=== PATIENT | male | born 1945 | race Caucasian/White ===

== ENCOUNTER 2016-04-22 10:52 | Inpatient (IN) | payer BC ==
[~2016-04-22] VITALS: Ht 170.2 cm; Wt 85.6 kg
[~2016-04-22 10:52] MED LIST: Aspirin E.C. PO; Bactrim,Septra DS 80 PO; FEOSOL325 MG PO; LEUKERAN2 MG PO; Martinic PO; Move Free Advanced T PO; THERAGRAN1 TABLET PO; VITAMIN D1000 INTUN PO; Vicodin,Lortab 5/500 PO
[2016-04-22 12:32] LABS: CHLORIDE 105 mEq/L (99-109); POTASSIUM 3.9 mEq/L (3.7-5.4); SODIUM 137 mEq/L (136-147)
[2016-04-22 12:34] LABS: GLUCOSE 156 mg/dL (70-99)
[2016-04-22 12:36] LABS: ANION GAP 12 MEQ/L (2-14)
[2016-04-22 12:38] LABS: ALKALINE PHOSPHATASE 86 IU/L (3-129); GFR ESTIMATE (CALCULATED) 45 mL/min/
[2016-04-22 12:39] LABS: UREA NITROGEN (BUN) 48 mg/dL (9-23)
[2016-04-22 12:40] LABS: EOSINOPHIL (%) 2.4 % (0-5); HEMATOCRIT 23.6 % (38.0-50.0); IMMATURE GRANULOCYTE (%) 3.5 % (0.0-0.7); IMMATURE GRANULOCYTE COUNT 0.3 K/uL; LYMPHOCYTE COUNT 0.2 K/uL (1.0-2.8); MCH 33.5 PG (29.0-34.0); MCHC 35.2 G/DL (30.0-36.0); MCV 95.2 FL (86-99); MONOCYTE (%) 2.4 % (3-12); NEUTROPHIL (%) 71.7 % (45-76); NEUTROPHIL COUNT 0.6 K/uL (1.8-6.4); RBC DIS.WIDTH-CV 18.3 % (11.8-14.6); RBC DIS.WIDTH-SD 60.2 % (39-53); RED BLOOD COUNT 2.48 M/uL (4.00-5.50)
[2016-04-22 12:41] LABS: WHITE BLOOD COUNT 0.9 K/uL (4.1-10.2)
[2016-04-22 13:15] LABS: MEAN PLAT.VOLUME 9.2 uM^3 (9.0-12.4); PLATELET COUNT 49 K/uL (156-360)
[2016-04-22 14:02] LABS: HEMATOLOGY COMMENT 1 SMEAR COMPATIBLE; PLAT.SUFFICIENCY DECREASED; USER ID TLW
[2016-04-22 14:14] LABS: ADD MIUA? NO; BILIRUBIN NEGATIVE; BLOOD NEGATIVE; COLOR YELLOW ((YELLOW)); GLUCOSE (STRIP) NEGATIVE; KETONES NEGATIVE; LEUKOCYTES NEGATIVE; NITRITE NEGATIVE; PROTEIN (STRIP) NEGATIVE; SPECIFIC GRAVITY 1.008 (1.000-1.030); UCUL ADDED? NO; UROBILINOGEN 0.2 MG/DL (0.2-1.0)
[2016-04-22] MEDS ORDERED: LO-DOSE ASPIRIN81 M2 PO (14:50)
[2016-04-22] MEDS ORDERED: GLUCOSAMINE CH1 EAC2 PO (14:51)
[2016-04-22] MEDS ORDERED: ADVIL,NUPRIN,M200 MG PO (14:53)
[2016-04-22] MEDS ORDERED: ALLOPURINOL300 MG PO (14:53)
[2016-04-22] MEDS ORDERED: CHLORPROMAZINE25 MG PO (14:53)
[2016-04-22 15:15] LABS: TROP-I INTERPRETATION NEGATIVE; TROPONIN-I < 0.01 ng/mL (0.0-0.30)
[2016-04-22 15:51] VITALS: BP 153/69
[2016-04-22 18:47] LABS: INFLUENZA A VIRAL ANTIGEN NEGATIVE; INFLUENZA B VIRAL ANTIGEN NEGATIVE
[2016-04-22 19:52] VITALS: BP 118/53
[2016-04-22 23:45] VITALS: BP 109/49
[2016-04-23] VITALS (15 sets, daily range): BP systolic 90–153; BP diastolic 50–75
[2016-04-23 06:56] LABS: ALKALINE PHOSPHATASE 67 IU/L (3-129); ANION GAP 7 MEQ/L (2-14); CHLORIDE 109 MEQ/L (99-109); GFR ESTIMATE (CALCULATED) 53 mL/min/; POTASSIUM 4.2 MEQ/L (3.7-5.4); SAMPLE HEMOLYSIS CHECK 0; SAMPLE ICTERIC CHECK 0; SAMPLE LIPEMIA CHECK 0; SODIUM 137 MEQ/L (136-147); UREA NITROGEN (BUN) 33 mg/dL (9-23)
[2016-04-23 06:57] LABS: GLUCOSE 108 mg/dL (70-99); TOTAL BILIRUBIN 1.5 MG/DL (0.0-1.0)
[2016-04-23 07:34] LABS: HEMATOCRIT 18.5 % (38.0-50.0); MCHC 34.1 G/DL (30.0-36.0); MCV 97.3 FL (86-99); RBC DIS.WIDTH-CV 19.4 % (11.8-14.6); RBC DIS.WIDTH-SD 67.3 % (39-53)
[2016-04-23 07:40] LABS: RED BLOOD COUNT 1.91 M/uL (4.00-5.50); WHITE BLOOD COUNT 0.7 K/uL (4.1-10.2)
[2016-04-23 08:23] LABS: MEAN PLAT.VOLUME 9.4 uM^3 (9.0-12.4); PLATELET COUNT 41 K/uL (156-360)
[2016-04-23 12:27] LABS: IRON 59 MCG/DL (35-150)
[2016-04-23 12:42] LABS: FERRITIN 246 NG/ML (22-322)
[2016-04-23 23:19] LABS: HEMATOCRIT 26.2 % (38.0-50.0); MCV 94.2 FL (86-99)
[2016-04-24 02:43] VITALS: BP 150/67
[2016-04-24 07:11] LABS: ANION GAP 6 MEQ/L (2-14); CHLORIDE 110 MEQ/L (99-109); GFR ESTIMATE (CALCULATED) > 59 mL/min/; GLUCOSE 101 mg/dL (70-99); POTASSIUM 4.3 MEQ/L (3.7-5.4); SAMPLE HEMOLYSIS CHECK 0; SAMPLE ICTERIC CHECK 0; SAMPLE LIPEMIA CHECK 0; SODIUM 138 MEQ/L (136-147); UREA NITROGEN (BUN) 25 mg/dL (9-23)
[2016-04-24 07:12] LABS: HEMATOCRIT 23.2 % (38.0-50.0); MCH 32.8 PG (29.0-34.0); MCHC 34.9 G/DL (30.0-36.0); MCV 93.9 FL (86-99); MEAN PLAT.VOLUME 10.2 uM^3 (9.0-12.4); PLATELET COUNT 43 K/uL (156-360); RBC DIS.WIDTH-CV 19.6 % (11.8-14.6); RBC DIS.WIDTH-SD 66.3 % (39-53); RED BLOOD COUNT 2.47 M/uL (4.00-5.50); WHITE BLOOD COUNT 0.8 K/uL (4.1-10.2)
[2016-04-24 08:29] VITALS: BP 145/69
[2016-04-24 11:13] VITALS: BP 151/69
[2016-04-24 17:33] VITALS: BP 130/74
[2016-04-24 22:45] VITALS: BP 152/81
[2016-04-25 06:54] LABS: ANION GAP 6 MEQ/L (2-14); CHLORIDE 109 MEQ/L (99-109); DIRECT BILIRUBIN 0.3 mg/dL (0.0-0.3); GFR ESTIMATE (CALCULATED) > 59 mL/min/; GLUCOSE 96 mg/dL (70-99); POTASSIUM 4.4 MEQ/L (3.7-5.4); SAMPLE HEMOLYSIS CHECK 0; SAMPLE ICTERIC CHECK 0; SAMPLE LIPEMIA CHECK 0; SODIUM 140 MEQ/L (136-147); TOTAL BILIRUBIN 1.4 MG/DL (0.0-1.0); UREA NITROGEN (BUN) 24 mg/dL (9-23)
[2016-04-25 07:23] LABS: HEMATOCRIT 24.7 % (38.0-50.0); MCH 32.1 PG (29.0-34.0); MCV 94.3 FL (86-99); RBC DIS.WIDTH-CV 19.2 % (11.8-14.6); RED BLOOD COUNT 2.62 M/uL (4.00-5.50); WHITE BLOOD COUNT 1.2 K/uL (4.1-10.2)
[2016-04-25 08:59] VITALS: BP 152/75
[2016-04-25 09:18] LABS: ABS NEUTROPHIL COUNT 0.58; ANISOCYTOSIS 1+; EOSINOPHIL ABS CT 0.06; MICROCYTOSIS 1+; PLAT.SUFFICIENCY DECREASED; PLATELET COUNT 43 K/uL (156-360); POLYCHROMASIA 2+
[2016-04-25 16:46] VITALS: BP 131/76
[2016-04-25 23:19] VITALS: BP 154/74
[2016-04-26 07:57] VITALS: BP 132/73
[2016-04-26 08:01] LABS: HEMATOCRIT 25.5 % (38.0-50.0); MCH 31.9 PG (29.0-34.0); MCHC 33.7 G/DL (30.0-36.0); MCV 94.4 FL (86-99); RBC DIS.WIDTH-CV 19.3 % (11.8-14.6); RBC DIS.WIDTH-SD 65.2 % (39-53)
[2016-04-26 08:03] LABS: WHITE BLOOD COUNT 1.6 K/uL (4.1-10.2)
[2016-04-26 08:06] LABS: EOSINOPHIL (%) 3.8 % (0-5); EOSINOPHIL COUNT 0.1 K/uL (0-0.3); HEMATOLOGY COMMENT 1 SMEAR COMPATIBLE; IMMATURE GRANULOCYTE (%) 1.9 % (0.0-0.7); LYMPHOCYTE COUNT 0.7 K/uL (1.0-2.8); MEAN PLAT.VOLUME 9.8 uM^3 (9.0-12.4); MONOCYTE (%) 1.3 % (3-12); NEUTROPHIL (%) 45.9 % (45-76); NEUTROPHIL COUNT 0.7 K/uL (1.8-6.4); PLATELET COUNT 52 K/uL (156-360); USER ID CL
[2016-04-26 08:43] LABS: POC NON-PRINT COM 1 ND
[2016-04-26 10:19] LABS: ANION GAP 9 MEQ/L (2-14); CHLORIDE 108 MEQ/L (99-109); GFR ESTIMATE (CALCULATED) > 59 mL/min/; GLUCOSE 134 mg/dL (70-99); POTASSIUM 3.8 MEQ/L (3.7-5.4); SAMPLE HEMOLYSIS CHECK 0; SAMPLE ICTERIC CHECK 0; SAMPLE LIPEMIA CHECK 0; SODIUM 141 MEQ/L (136-147); UREA NITROGEN (BUN) 24 mg/dL (9-23)
[2016-04-26] MEDS ORDERED: LEVAQUIN750 MG PO (12:02)
[2016-04-26] MEDS ORDERED: CYANOCOBALAM1000 MCG PO (12:02)
== END 2016-04-26 16:10 | disposition home or self-care (01) | DRG 809 ==
LOC: EME 10:52 → 5EAST 14:07 → EDOF 14:07 → 5EAST 15:36
PROVIDERS: Emergency Medicine; Hospitalist; Internal Medicine; Physician Assistant
PROC: 30233N1 Transfusion of Nonautologous Red Blood Cells into Peripheral Vein, Percutaneous Approach (ICD-10-PCS; principal; 2016-04-22)
DX: D70.9 Neutropenia, unspecified (principal); D61.810 Antineoplastic chemotherapy induced pancytopenia; C91.10 Chronic lymphocytic leukemia of B-cell type not having achieved remission; N17.9 Acute kidney failure, unspecified; E86.0 Dehydration; T45.1X5A Adverse effect of antineoplastic and immunosuppressive drugs, initial encounter; R50.81 Fever presenting with conditions classified elsewhere; D64.81 Anemia due to antineoplastic chemotherapy
CPT/HCPCS: 36415; 71020; 80048; 80053; 81003; 82247; 82248; 82272; 82607; 82728; 82746; 83540; 83605; 84466; 84484; 85007; 85009; 85014; 85018; 85025; 85025 91; 85027; 86850; 86900; 86901; 86920; 87040; 87502; 93005; 99281; 99285; J0692; J3420; J7030; J7050; P9016